=== PATIENT | male | born 1985 | race Caucasian/White ===

== ENCOUNTER 2021-03-04 15:26 | Emergency (ER) | payer OTHER ==
[~2021-03-04] VITALS: Ht 180.3 cm; Wt 93.0 kg
[2021-03-04] MEDS ORDERED: CEPHALEXIN500 MG PO ×2 (18:18→18:20)
[2021-03-04] MEDS ORDERED: APAP W/CODEINE1 TA2 PO (18:18)
[2021-03-04 19:10] VITALS: BP 138/82
== END 2021-03-04 19:11 | disposition home or self-care (01) ==
LOC: M.ERS 15:26
DX: S61.215A Laceration without foreign body of left ring finger without damage to nail, initial encounter (principal); S61.217A Laceration without foreign body of left little finger without damage to nail, initial encounter; W29.3XXA Contact with powered garden and outdoor hand tools and machinery, initial encounter; Y93.89 Activity, other specified; Y92.89 Other specified places as the place of occurrence of the external cause; Y99.8 Other external cause status